=== PATIENT | male | born 1995 | race Caucasian/White ===

== ENCOUNTER 2019-06-19 17:47 | Emergency (ER) | payer SELFPAY ==
[2019-06-19 17:51] VITALS: BP 113/72; PULSE 79; RESP 15; TEMP 36.9; O2SAT 96; BMI 20.7
--- NOTE | 2019-06-19 18:04 | ED_ITS ---
HPI - Head Injury General: Chief complaint: Head Injury Stated complaint: hit head Time Seen by Provider: 06/19/19 17:58 History of Present Illness: HPI Narrative: Bumped scalp on a boat in her bridge as he was chasing dog and sustained a laceration. Patient had no loss of consciousness nausea or vomiting or any type of blunt force to the head had tetanus shot last year Complaint: other (Laceration) Onset (ago): hour(s) Mechanism of Injury: other (Hit scalp on a bolt) Place: outdoors Location of injury: occipital Severity: mild Radiation: none Other Injuries: none Associated symptoms: Reports no associated symptoms Review of Systems Narrative: Laceration to the scalp burst type laceration Const: Denies: fever or chills Eyes: Denies: change in vision Resp: Denies: shortness of breath Neuro: Denies: headache PFSH ED PFSH: Social History Smoking and tobacco status: current every day smoker Physical Exam Const: COMMON NORMALS: no apparent distress and oriented x3 Neuro: COMMON NORMALS: oriented x3 and CN's II-XII intact bilaterally Psych: COMMON NORMALS: mental status grossly normal Procedures Laceration Laceration 1: Site: scalp Size (cm): 1 Description: stellate Depth: simple, single layer Pre-repair: wound explored Size (cm): other (Stable) Number of sutures: 1 Course Vital Signs: Vital signs: Vital Signs Temperature 98.4 F 06/19/19 17:51 Pulse Rate 79 06/19/19 17:51 Respiratory Rate 15 06/19/19 17:51 Blood Pressure 113/72 06/19/19 17:51 Pulse Oximetry 96 06/19/19 17:51 Discharge Plan Discharge Patient Disposition: Home, Self-Care Clinical Impression: Laceration of scalp Qualifiers: Encounter type: initial encounter Qualified Code(s): S01.01XA - Laceration without foreign body of scalp, initial encounter Condition: Stable Prescriptions: New Keflex 500 mg capsule 500 mg PO TID 7 Days Qty: 21 RF: 0 Discharge Orders: Discharge Order (Routine); Ordered 06/19/19 Ordered By: Royal Hodgson Referrals: Jona Nguyễn MD [Primary Care Provider] - Discharge Diet: Usual diet Discharge Activity: Resume usual activity Patient Instructions: Staple Care (ED) Activity Restrictions/Additional Instructions: Follow-up with medical provider as directed. Take medications as prescribed. Return to the ER or your medical provider if condition worsens. Please read and understand discharge instructions. If any questions ask please. 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
[2019-06-19 18:20] VITALS: BP 108/68; PULSE 66; RESP 16; TEMP 36.9; O2SAT 96
[2019-06-19 18:25] VITALS: BP 108/68; PULSE 66; RESP 14; TEMP 36.8; O2SAT 96
== END 2019-06-19 18:25 | disposition home or self-care (01) ==
LOC: ER 18:09
PROVIDERS: Emergency Provider Nurse Practitioner Family; Family Provider Family Medicine; PCP Family Medicine
DX: S01.01XA Laceration without foreign body of scalp, initial encounter (principal); F17.200 Nicotine dependence, unspecified, uncomplicated; W22.8XXA Striking against or struck by other objects, initial encounter
CPT/HCPCS: 12001; 99281; 99282

== ENCOUNTER 2021-07-24 11:51 | Inpatient (IN) | payer SELFPAY ==
[2021-07-24 11:59] VITALS: BP 134/71; PULSE 73; RESP 18; TEMP 36.8; O2SAT 98; BMI 19.6
--- NOTE | 2021-07-24 12:10 | ED.C_ITS ---
HPI - Psych General: Chief Complaint: Psychiatric Symptoms Stated Complaint: MHE Time Seen by Provider: 07/24/21 12:10 History of Present Illness: Mr. Heredia is a 25-year-old gentleman with reported history of depression though has never been evaluated who presents to the emergency department due to worsening depression and suicidal ideation. He reports a longstanding history of emotional lability, tearfulness, and feeling of being stuck in his head. This caused significant relationship stress and he broke up with his girlfriend, who he has a child with, approximately 1 month ago. Since that time he has had worsening symptoms. He endorses over the past few weeks having a voice in his head which is not his that at times is mumbling and at other times is easy to hear. He reports that this voices telling him to kill himself. He did make preparations a few weeks ago to kill himself and his plan was with a knife. He wrote notes however reports that he was looking at photos of his son and decided not to kill himself. He has associated decrease in p.o. intake. Intensity of symptoms is moderate to severe. Course has been worsening. Otherwise he denies medical complaints. He does endorse marijuana use but denies other drug use. He is a smoker. No other specific changes in health, exacerbating, or alleviating factors identified. Onset (ago): week(s) Duration: getting worse Relieving factors: none Context: significant life stressor Associated psychiatric symptoms: depression, suicidal ideation and auditory yo lucinations Treatments prior to arrival: none If self harm: admits thoughts of self harm Review of Systems General: Reports: 10 or more systems reviewed and unremarkable except in HPI and below PFSH ED PFSH: Medical History Psychiatric care Surgical History No significant past surgical history Family History Brother Depression Mother Depression Social History Smoking and tobacco status: current every day smoker Physical Exam Const: COMMON NORMALS: alert GENERAL APPEARANCE: cooperative and well developed HENMT: COMMON NORMALS: normocephalic and atraumatic HEAD & SCALP: normocephalic and atraumatic Eye: COMMON NORMALS: conjunctivae normal CONJUNCTIVA: Yes conjunctivae normal SCLERA: sclerae normal Neck/C-Spine: COMMON NORMALS: supple GENERAL: Yes trachea midline Resp: COMMON NORMALS: normal respiratory effort and clear to auscultation bilaterally EFFORT & INSPECTION: Yes able to speak in complete sentences AUSCULTATION: clear to auscultation bilaterally Cardio: COMMON NORMALS: regular rate and regular rhythm RATE: regular rate RHYTHM: regular rhythm GI: COMMON NORMALS: Soft to palpation PALPATION: Yes Soft to palpation and No Tenderness to palpation present (GI) Extremity: GENERAL: Yes normal exam except as noted and No edema Neuro: COMMON NORMALS: moves all extremities SENSORIUM/ORIENTATION: Yes alert and No Orientation impaired Psych: MOOD & AFFECT: Yes depressed mood and Yes anxious Course ED course: - Patient was seen and evaluated by me at bedside -Vital signs obtained - Initial evaluation notable for as noted - Labs personally interpreted by me - Labs notable for mild leukocytosis likely secondary to hemoconcentration. Patient can adequately orally rehydrate. No acute electrolyte derangement. -Psychiatry service contacted and agreed to admit the patient -Based on ED evaluation at this point there is no obvious condition that would preclude the patient from inpatient management of psychiatric concerns. Note: Click bubbles or prepopulated quiroz in note writing are used for assistance with data collection and billing and are inherently more limited than narrative and other text portions of this note. Please use narrative for additional clinical history and defer to narrative/free test for any case of contradictory information. If information appears in only free text or click bubble it should be considered present or absent as reported. Please contact note headline writer for clarifications of clinical information or contradictory information. MDM is a brief summary, contradictory or erroneous seeming information should be clarified and full note should be reviewed. Vital Signs: Vital signs: Vital Signs Temperature 97.6 F 07/25/21 19:43 Pulse Rate 88 07/25/21 19:43 Respiratory Rate 17 07/25/21 19:43 Blood Pressure 123/76 07/25/21 19:43 Pulse Oximetry 98 07/25/21 19:43 MDM - Psych Medical Decision Making 25-year-old gentleman with recent increased social stressors presenting with suicidal ideation and auditory hallucinations. Admitted to neuropsych for definitive management. Medical Records I reviewed the patient's medical records. Lab Data I reviewed the patient's lab results. : 07/24/21 12:17 07/24/21 12:17 Laboratory Results WBC 10.2 10^3/uL (4.0-10.0) H 07/24/21 12:17 RBC 5.68 10^6/uL (4.1-5.3) H 07/24/21 12:17 Hgb 18.1 g/dL (11.7-16.6) H 07/24/21 12:17 Hct 50.3 % (42.0-52.0) 07/24/21 12:17 MCV 88.6 fl (80-94) 07/24/21 12:17 MCH 31.9 pg (28.0-34.0) 07/24/21 12:17 MCHC 36.0 g/dL (30.0-36.0) 07/24/21 12:17 RDW 11.9 % (12.1-15.1) L 07/24/21 12:17 Plt Count 280 10^3/cmm (130-400) 07/24/21 12:17 MPV 9.0 fL (7.4-10.4) 07/24/21 12:17 Neut % (Auto) 83.8 % 07/24/21 12:17 Lymph % (Auto) 7.8 % 07/24/21 12:17 Loíza % (Auto) 7.2 % 07/24/21 12:17 Eos % (Auto) 0.6 % 07/24/21 12:17 Baso % (Auto) 0.4 % 07/24/21 12:17 Neut # (Auto) 8.55 10^3/uL (1.8-7.7) H 07/24/21 12:17 Lymph # (Auto) 0.8 10^3/uL (0.8-4.8) 07/24/21 12:17 Loíza # (Auto) 0.7 10^3/uL (0.2-0.9) 07/24/21 12:17 Eos # (Auto) 0.1 10^3/uL (0.0-0.8) 07/24/21 12:17 Baso # (Auto) 0.0 10^3/uL (0.0-0.1) 07/24/21 12:17 Nucleated RBC % (auto) 0 % 07/24/21 12:17 Nucleated RBCs # 0.0 /100WBC 07/24/21 12:17 Sodium 139 mmol/L (136-145) 07/24/21 12:17 Potassium 3.6 mmol/L (3.5-5.1) 07/24/21 12:17 Chloride 101 mmol/L (98-107) 07/24/21 12:17 Carbon Dioxide 28 mmol/L (22-29) 07/24/21 12:17 Anion Gap 13.6 (5-19) 07/24/21 12:17 BUN 9 mg/dL (6-20) 07/24/21 12:17 Creatinine 0.7 mg/dL (0.7-1.2) 07/24/21 12:17 GFR Calculation 139.8 mL/min (90-130) H 07/24/21 12:17 Glucose 99 mg/dL (65-115) 07/24/21 12:17 Calculated Osmolality 287 mOsm/kg (285-295) 07/24/21 12:17 Calcium 9.7 mg/dL (8.5-10.5) 07/24/21 12:17 Total Bilirubin 1.3 mg/dL (0.15-1.2) H 07/24/21 12:17 AST 17 U/L (0-40) 07/24/21 12:17 ALT 13 U/L (0-41) 07/24/21 12:17 Alkaline Phosphatase 76 IU/L (40-130) 07/24/21 12:17 Total Protein 7.8 g/dL (6.6-8.7) 07/24/21 12:17 Albumin 5.3 g/dL (3.5-5.2) H 07/24/21 12:17 Globulin 2.5 g/dL (1.3-4.6) 07/24/21 12:17 TSH 1.01 uIU/mL (0.27-4.20) 07/24/21 12:17 Salicylates < 0.3 mg/dL (3-10) L 07/24/21 12:17 Urine Opiates Screen Negative ng/mL (Negative) 07/24/21 12:45 Acetaminophen < 5.0 ug/mL (10-30) L 07/24/21 12:17 Ur Barbiturates Screen Negative ng/mL (Negative) 07/24/21 12:45 Ur Phencyclidine Scrn Negative ng/mL (Negative) 07/24/21 12:45 Ur Amphetamines Screen Negative ng/mL (Negative) 07/24/21 12:45 U Benzodiazepines Scrn Positive ng/mL (Negative) H 07/24/21 12:45 Urine Cocaine Screen Negative ng/mL (Negative) 07/24/21 12:45 U Marijuana (THC) Screen Positive ng/mL (Negative) H 07/24/21 12:45 Ethyl Alcohol < 10 mg/dL (0-10) 07/24/21 12:17 Discharge Plan Discharge Patient Disposition: Admitted As Inpatient Admit Provider: Kevin Ordonez Clinical Impression: Suicidal ideation, Auditory hallucinations Condition: Stable Discharge Diet: Regular Discharge Activity: Resume usual activity Coding Level of Care Code ED Local Intermodal Truck Driver for Espinoza Fwd Exam Comprehensive
[2021-07-24 12:46] LABS: Basophils % 0.4 %; Eosinophils # 0.1 10^3/uL (0.0-0.8); Eosinophils % 0.6 %; Hematocrit 50.3 % (42.0-52.0); Hemoglobin 18.1 g/dL (11.7-16.6); Lymphocytes # 0.8 10^3/uL (0.8-4.8); Lymphocytes % 7.8 %; Mean Corpuscular Hemoglobin 31.9 pg (28.0-34.0); Mean Corpuscular Volume 88.6 fl (80-94); Monocytes # 0.7 10^3/uL (0.2-0.9); Monocytes % 7.2 %; Neutrophils # 8.55 10^3/uL (1.8-7.7); Neutrophils % 83.8 %; Nucleated Red Blood Cells % 0 %; Platelet Count 280 10^3/cmm (130-400); Red Blood Count 5.68 10^6/uL (4.1-5.3); Red Cell Distribution Width 11.9 % (12.1-15.1); White Blood Count 10.2 10^3/uL (4.0-10.0)
[2021-07-24 13:05] LABS: Alanine Aminotransferase 13 U/L (0-41); Albumin Level 5.3 g/dL (3.5-5.2); Alkaline Phosphatase 76 IU/L (40-130); Anion Gap 13.6 (5-19); Aspartate Amino Transferase 17 U/L (0-40); Blood Urea Nitrogen 9 mg/dL (6-20); Calcium 9.7 mg/dL (8.5-10.5); Carbon Dioxide 28 mmol/L (22-29); Chloride 101 mmol/L (98-107); Globulin 2.5 g/dL (1.3-4.6); Glomerular Filtration Rate 139.8 mL/min (90-130); Glucose 99 mg/dL (65-115); Osmolality Calculated 287 mOsm/kg (285-295); Potassium 3.6 mmol/L (3.5-5.1); Sodium 139 mmol/L (136-145); Thyroid Stimulating Hormone 1.01 uIU/mL (0.27-4.20); Total Bilirubin 1.3 mg/dL (0.15-1.2); Total Protein 7.8 g/dL (6.6-8.7)
[2021-07-24 13:06] LABS: Acetaminophen < 5.0 ug/mL (10-30); Alcohol Level < 10 mg/dL (0-10); Salicylate < 0.3 mg/dL (3-10)
[2021-07-24 14:44] VITALS: BP 110/57; PULSE 71; RESP 20; TEMP 36.6; O2SAT 97
[2021-07-24 15:06] VITALS: BP 120/76; PULSE 74; RESP 16; TEMP 36.6; O2SAT 98
[2021-07-24 15:20] LABS: Amphetamines Screen Urine Negative (Negative); Barbiturates Screen Urine Negative (Negative); Benzodiazepines Screen Urine Positive (Negative); Cocaine Screen Urine Negative (Negative); Opiate Screen Urine Negative (Negative); PCP Screen Urine Negative (Negative); THC Screen Urine Positive (Negative)
[2021-07-24] MEDS: nicotine 2 mg Gum BUCCAL (17:36)
[2021-07-24 21:36] VITALS: BP 94/63; PULSE 93; RESP 17; TEMP 36.8; O2SAT 96
[2021-07-25] MEDS: nicotine 2 mg Gum BUCCAL ×7 (01:54→18:58)
[2021-07-25 06:00] VITALS: BP 106/58; PULSE 82; RESP 20; TEMP 36.4; O2SAT 97
[2021-07-25] MEDS: OLANZapine 5 mg ODT PO ×2 (08:57→17:13)
--- NOTE | 2021-07-25 12:12 | NPU.GN ---
[facility] Unit Group Topic:Whine Barrel Activity General Mood of Group: Elmer did not attend group today. Elmer did meet with [facility] and discussed and completed the [facility] paperwork.
--- NOTE | 2021-07-25 12:42 | P.NPUHP_ITS ---
Providers/Chief Complaint Admitting Physician: Kevin Ordonez MD Chief Complaint: MHE HPI NPU History of Present Illness Elmer Heredia is a 25 year old male who presented to the emergency department with the following report: Mr. Heredia is a 25-year-old gentleman with reported history of depression th ough has never been evaluated who presents to the emergency department due to worsening depression and suicidal ideation. He reports a longstanding history of emotional lability, tearfulness, and feeling of being stuck in his head. This caused significant relationship stress and he broke up with his girlfriend, who he has a child with, approximately 1 month ago. Since that time he has had worsening symptoms. He endorses over the past few weeks having a voice in his head which is not his that at times is mumbling and at other times is easy to hear. He reports that this voices telling him to kill himself. He did make preparations a few weeks ago to kill himself and his plan was with a knife. He wrote notes however reports that he was looking at photos of his son and decided not to kill himself. He has associated decrease in p.o. intake. Intensity of symptoms is moderate to severe. Course has been worsening. Otherwise he denies medical complaints. He does endorse marijuana use but denies other drug use. He is a smoker. No other specific changes in health, exacerbating, or alleviating factors identified. Onset (ago): week(s) Duration: getting worse Relieving factors: none Context: significant life stressor Associated psychiatric symptoms: depression, suicidal ideation and auditory hallucinations Treatments prior to arrival: none If self harm: admits thoughts of self harm. Who was admitted to the neuropsychiatric unit for definitive treatment of those issues. He reports that he had not been in inpatient services before in his life and had not had outpatient services either. However, he went down to [facility] for a walk in and they did not have availability for him. They advised him to come up to the hospital because he really felt he needed to get on medication to get a chance to succeed under his current circumstance, and so he came to the hospital to get help and be started on medication but it was his understanding that he would see someone and be discharged essentially immediately as he has a job that he has missed days because of the challenges of his mental health and he can?t afford to miss more days. He has never been on medication in the past. He e ndorses he smokes about a half a pack of cigarettes a day, does not drink alcohol, endorses having marijuana occasionally, and denied cocaine, methamphetamine, or any other illicit drugs. He has never been to a rehab, has never gotten a DUI or possession charges. His UDS was positive for benzodiazep jane and cannabis. He reports he has had issues with depression in his late teens and about 4 years ago he did have depression which has gotten worse especially with recent psychosocial events which are characterized above. He reports that he has had feelings of helplessness, hopelessness, and worth lessness, some suicidal thoughts, but denies any suicide attempts. He reports he recently broke up with his girlfriend and did have fleeting thoughts but knows there is so much more to live for. We discussed the risks, benefits and alternatives of starting Prozac and he understood and agreed to proceed as is documented in this note. Psychiatric History: As above. Substance Abuse History: As above Family History: He reports mental health issues on both sides of the family, endorses likely addiction issues on both sides of the family, but denies any suicide attempts or completions on either side of the family. Developmental History: There were no issues with his , or delivery, he learned to walk and talk and met his developmental milestones on time, and denied any need for speech therapy, learning support, emotional support or special education classes. Psychosocial History: He reports his parents were together when he was born and stayed together until he was a few years old. He reports he has a younger brother who is a product of the same union. His mother did not have any other children but he wasn?t sure about his father. He reports his childhood was pretty good and denied emotional, physical or sexual abuse. He reports there may have been some bullying in school but otherwise denies any other traumatic events. He graduated from high school but denies any additional training. He endorses being heterosexual with his longest relationship being over 3 years. He has never been , he has a son, has never been in the , and reports he ?does believe in the Lord?. His longest work history is 6 years at [employer] however because of recent challenges and missed days, he reports he is on very thin ice. He reports he had been living in a house with his ex-girlfriend but is going to move in with his mom and get things together. Legal History: Denied. Medical History: He denied any pressing issues. Please see ED note for additional details. Meds NPU Home Medications Medication Instructions Recorded Confirmed Last Taken Type acetaminophen 500 mg tablet 1,000 mg PO Q6H PRN 07/24/21 07/24/21 Unknown History ibuprofen 200 mg tablet 400 mg PO Q6H PRN 07/24/21 07/24/21 Unknown History fluoxetine 20 mg capsule 20 mg PO DAILY 30 Days #30 cap 07/25/21 Unknown Rx Allergies Allergy/AdvReac Type Severity Reaction Status Date / Time Penicillins Allergy ALGY-Rash Verified 07/24/21 12:35 PFSH NPU PFSH: Medical History Psychiatric care Surgical History No significant past surgical history Family History Brother Depression Mother Depression Social History Smoking and tobacco status: current every day smoker Mental Status Exam MSE Comments: This is underweight white male with adequate dress, grooming and eye contact. No abnormal movements except for mild psychomotor retardation. Cooperative with exam in no acute distress. Speech was normal rate and volume. Mood described as anxious and depressed, affect congruent. Thought process, organized. Thought content: patient denies any suicidal or homicidal ideation, no delusions reported or noted, and denies any auditory or visual hallucinations. Attention and concentration are intact and memory is reliable but none were formally tested. He is alert and oriented three times. Insight and judgment are fair. Impulse control is fair. Vitals/I&O/Wt Last Vital Signs Temp 97.6 F 07/25/21 06:00 Pulse 82 07/25/21 06:00 Resp 20 H 07/25/21 06:00 BP 106/58 07/25/21 06:00 Pulse Ox 97 07/25/21 06:00 Weight last 48 hrs Weight 60.328 kg Data NPU : 07/24/21 12:17 03/23/22 12:17 A&P Assessment and plan (1) Major depressive disorder, recurrent: Status: Acute (2) Suicidal ideation: Status: Resolved (3) Auditory hallucinations: Status: Resolved Plan This is a 25 year old white male with a long history of anxiety and depression and recent psychosocial stressors who presents hoping to initiate medication sooner rather than later, but also identifying a need to be discharged to avoid loss of the only good job he has ever had. Continue current medications. Start Prozac 20 mg p.o. every morning and have patient follow-up back at [facility]. Encourage individual, group and milieu therapy Continue q-15 minute check for safety Recommend sober living treatment at the [facility]. Patient is not on a 96-hour hold and does not appear to pose a risk to himself or others and would benefit from the medication. Will allow to discharge. Involuntary Hold Information 96 Hour Hold: 96 Hour Involuntary Admission: No Attestations NPU Medical Necessity Statement*: Inpatient hospitalization is medically necessary and the clinically appropriate intervention at this time. We will monitor medications and make changes as indicated. Patient is voluntary and would suff er significant damage if you are not allowed to go to work so we will discharge today after a period of observation on the Prozac. Coding Level of Care Code Acute Electrician Office for Espinoza Cabral Diagnoses Major depressive disorder, recurrent F33.9 Suicidal ideation R45.851 Auditory hallucinations R44.0
[2021-07-25 14:00] VITALS: BP 123/76; PULSE 88; RESP 17; TEMP 36.4; O2SAT 98
[2021-07-25] MEDS: hyDROXYzine 25 mg Capsule 50 MG PO (15:27)
--- NOTE | 2021-07-25 16:00 | PC.NURSE ---
PRN Medication Up to nurses station at 1525 request something for anxiety. This RN asked if he was hearing voices and reports no, just anxiety. Vistaril 50 mg PO given as ordered at 1527. Reassessed 30 minutes later and reports medication is effective.
--- NOTE | 2021-07-25 17:39 | PC.NURSE ---
Focused conversation with patient regarding past medication usage. Patient reports not taking any prescribed medication in the past and that he has never had a therapist in the past. Patient recent stresses include breakup with girlfriend, mother with stage 4 cervical cancer and potential loss of job that he has had for 6 years. Patient endorsed having depression for 2 1/2 years with recent anxiety due to stresses. Patient stated there were two times in life that he has heard his own voice self talk stating your life isn't going to the way you want, just do it. Patient denies SI/HI/ AVH at present. States he would never hurt himself or anyone else. Patient is open to medication therapy. Physician notified.
--- NOTE | 2021-07-25 17:57 | PC.NURSE ---
PRN Medication Up to nurses station, voices anxiety and request something to help with anxiety. Administered Zydis 5 MG as ordered at 1713. Reassesed at 1759 and states medication was somewhat effective. Request to speak to doctor. Doctor in room speaking to patient now.
[2021-07-25] MEDS: acetaminophen 325 mg Tablet 650 MG PO (18:31)
[2021-07-25] MEDS: fluoxetine 20 mg Capsule PO (18:31)
--- NOTE | 2021-07-25 19:01 | P.NPUDS_ITS ---
Reason for Visit Reason for Visit: MHE Brief History: History of Present Illness Elmer Heredia is a 25 year old male who presented to the emergency department with the following report: Mr. Hereida is a 25-year-old gentleman with reported history of depression though has never been evaluated who presents to the emergency department due to worsening depression and suicidal ideation.? He reports a longstanding history of emotional lability, tearfulness, and feeling of being stuck in his head.? This caused significant relationship stress and he broke up with his girlfriend, who he has a child with, approximately 1 month ago.? Since that time he has had worsening symptoms.? He endorses over the past few weeks having a voice in his head which is not his that at times is mumbling and at other times is easy to hear.? He reports that this voices telling him to kill himself.? He did make preparations a few weeks ago to kill himself and his plan was with a knife.? He wrote notes however reports that he was looking at photos of his son and decided not to kill himself.? He has associated decrease in p.o. intake. Intensity of symptoms is moderate to severe.? Course has been worsening. Otherwise he denies medical complaints.? He does endorse marijuana use but denies other drug use.? He is a smoker.? No other specific changes in health, exacerbating, or alleviating factors identified. Onset (ago): week(s) Duration: getting worse Relieving factors: none Context: significant life stressor Associated psychiatric symptoms: depression, suicidal ideation and auditory hallucinations Treatments prior to arrival: none If self harm: admits thoughts of self harm. Who was admitted to the neuropsychiatric unit for definitive treatment of those issues. He reports that he had not been in inpatient services before in his life and had not had outpatient services either. However, he went down to [facility] for a walk in and they did not have availability for him. They advised him to come up to the hospital because he really felt he needed to get on medication to get a chance to succeed under his current circumstance, and so he came to the hospital to get help and be started on medication but it was his understanding that he would see someone and be discharged essentially immediately as he has a job that he has missed days because of the challenges of his mental health and he can?t afford to miss more days. He has never been on medication in the past. He endorses he smokes about a half a pack of cigarettes a day, does not drink alcohol, endorses having marijuana occasionally, and denied cocaine, methamphetamine, or any other illicit drugs. He has never been to a rehab, has never gotten a DUI or possession charges. His UDS was positive for benzodiazepines and cannabis. He reports he has had issues with depression in his late teens and about 4 years ago he did have depression which has gotten worse especially with recent psychosocial events which are characterized above. He reports that he has had feelings of helplessness, hopelessness, and worthlessness, some suicidal thoughts, but denies any suicide attempts. He reports he recently broke up with his girlfriend and did have fleeting thoughts but knows there is so much more to live for. We discussed the risks, benefits and alternatives of starting Prozac and he understood and agreed to proceed as is documented in this note. Psychiatric History: As above. Substance Abuse History: As above Family History: He reports mental health issues on both sides of the family, endorses likely addiction issues on both sides of the family, but denies any suicide attempts or completions on either side of the family. Developmental History: There were no issues with his , or delivery, he learned to walk and talk and met his developmental milestones on time, and denied any need for speech therapy, learning support, emotional support or special education classes. Psychosocial History: He reports his parents were together when he was born and stayed together until he was a few years old. He reports he has a younger brother who is a product of the same union. His mother did not have any other children but he wasn?t sure about his father. He reports his childhood was pretty good and denied emotional, physical or sexual abuse. He reports there may have been some bullying in school but otherwise denies any other traumatic events. He graduated from high school but denies any additional training. He endorses being heterosexual with his longest relationship being over 3 years. He has never been , he has a son, has never been in the , and reports he ?does believe in the Lord?. His longest work history is 6 years at [employer] however because of recent challenges and missed days, he reports he is on very thin ice. He reports he had been living in a house with his ex-girlfriend but is going to move in with his mom and get things together. Legal History: Denied. Medical History: He denied any pressing issues. Please see ED note for additional details. Hospital Course Hospital Course He quickly acclimated to the individual, group and milieu therapies provided. He had little understanding of the system and was believing that he would get a similar evaluation that he would get at [facility] which would involve evaluative process consideration of medications prescribed and discharge. He was quite anxious secondary to thoughts that he would stay and in him losing his job he is held for 6 years. He also was concerned that the option was leaving AGAINST MEDICAL ADVICE and not getting the medication that he still desperately felt he needed. He had significant improvements once he understood that we would work with him and avoid the bad outcome he was fearing and he tolerated the Prozac once was given to him. He was able to contract for safety outside the hospital prior to discharge. During the hospitalization, patient had routine laboratory studies which were within normal limits except for few outliers. Additionally there was a general medical evaluation which was also within normal limits and revealed no new acute processes. Discharge Summary: At the time of discharge, he denied psychosis or lethality. Mood and anxiety were well managed. Patient endorsed a plan to avoid all drugs of abuse and follow-up with the aftercare recommendations of the treatment team. Patient was evaluated and deemed to be absent credible lethality, and had achieved the maximum benefit from an inpatient hospitalization, so was discharged. Involuntary Hold Information 96 Hour Hold: 96 Hour Involuntary Admission: No Mental Status Exam MSE Comments: This is underweight white male with adequate dress, grooming and eye contact. No abnormal movements except for mild psychomotor retardation. Cooperative with exam in no acute distress. Speech was normal rate and volume. Mood described as anxious and depressed, affect congruent. Thought process, organized. Thought content: patient denies any suicidal or homicidal ideation, no delusions reported or noted, and denies any auditory or visual hallucinations. Attention and concentration are intact and memory is reliable but none were formally tested. He is alert and oriented three times. Insight and judgment are fair. Impulse control is fair. Discharge Data Studies Completed and Pending: Laboratory Results WBC 10.2 10^3/uL (4.0 -10.0) H 07/24/21 12:17 RBC 5.68 10^6/uL (4.1 -5.3) H 07/24/21 12:17 Hgb 18.1 g/dL (11.7-1 6.6) H 07/24/21 12:17 Hct 50.3 % (42.0-52.0 ) 07/24/21 12:17 MCV 88.6 fl (80-94) 07/24/21 12:17 MCH 31.9 pg (28.0-34. 0) 07/24/21 12:17 MCHC 36.0 g/dL (30.0-3 6.0) 07/24/21 12:17 RDW 11.9 % (12.1-15.1 ) L 07/24/21 12:17 Plt Count 280 10^3/cmm (130 -400) 07/24/21 12:17 MPV 9.0 fL (7.4-10.4) 07/24/21 12:17 Neut % (Auto) 83.8 % 07/24/21 12:17 Lymph % (Auto) 7.8 % 07/24/21 12:17 Alexander % (Auto) 7.2 % 07/24/21 12:17 Eos % (Auto) 0.6 % 07/24/21 12:17 Baso % (Auto) 0.4 % 07/24/21 12:17 Neut # (Auto) 8.55 10^3/uL (1.8 -7.7) H 07/24/21 12:17 Lymph # (Auto) 0.8 10^3/uL (0.8- 4.8) 07/24/21 12:17 Alexander # (Auto) 0.7 10^3/uL (0.2- 0.9) 07/24/21 12:17 Eos # (Auto) 0.1 10^3/uL (0.0- 0.8) 07/24/21 12:17 Baso # (Auto) 0.0 10^3/uL (0.0- 0.1) 07/24/21 12:17 Nucleated RBC % (a uto) 0 % 07/24/21 12:17 Nucleated RBCs # 0.0 /100WBC 07/24/21 12:17 Sodium 139 mmol/L (136-1 45) 07/24/21 12:17 Potassium 3.6 mmol/L (3.5-5 .1) 07/24/21 12:17 Chloride 101 mmol/L (98-10 7) 07/24/21 12:17 Carbon Dioxide 28 mmol/L (22-29) 07/24/21 12:17 Anion Gap 13.6 (5-19) 07/24/21 12:17 BUN 9 mg/dL (6-20) 07/24/21 12:17 Creatinine 0.7 mg/dL (0.7-1. 2) 07/24/21 12:17 GFR Calculation 139.8 mL/min (90- 130) H 07/24/21 12:17 Glucose 99 mg/dL (65-115) 07/24/21 12:17 Calculated Osmolal ity 287 mOsm/kg (285- 295) 07/24/21 12:17 Calcium 9.7 mg/dL (8.5-10 .5) 07/24/21 12:17 Total Bilirubin 1.3 mg/dL (0.15-1 .2) H 07/24/21 12:17 AST 17 U/L (0-40) 07/24/21 12:17 ALT 13 U/L (0-41) 07/24/21 12:17 Alkaline Phosphata se 76 IU/L (40-130) 07/24/21 12:17 Total Protein 7.8 g/dL (6.6-8.7 ) 07/24/21 12:17 Albumin 5.3 g/dL (3.5-5.2 ) H 07/24/21 12:17 Globulin 2.5 g/dL (1.3-4.6 ) 07/24/21 12:17 TSH 1.01 uIU/mL (0.27 -4.20) 07/24/21 12:17 Salicylates < 0.3 mg/dL (3-10 ) L 07/24/21 12:17 Urine Opiates Scre en Negative ng/mL (N egative) 07/24/21 12:45 Acetaminophen < 5.0 ug/mL (10-3 0) L 07/24/21 12:17 Ur Barbiturates Sc reen Negative ng/mL (N egative) 07/24/21 12:45 Ur Phencyclidine S crn Negative ng/mL (N egative) 07/24/21 12:45 Ur Amphetamines Sc reen Negative ng/mL (N egative) 07/24/21 12:45 U Benzodiazepines Scrn Positive ng/mL (N egative) H 07/24/21 12:45 Urine Cocaine Scre en Negative ng/mL (N egative) 07/24/21 12:45 U Marijuana (THC) Screen Positive ng/mL (N egative) H 07/24/21 12:45 Ethyl Alcohol < 10 mg/dL (0-10) 07/24/21 12:17 Vitals: Last Vital Signs Temp 97.6 F 07/25/21 14:00 Pulse 88 07/25/21 14:00 Resp 17 07/25/21 14:00 BP 123/76 07/25/21 14:00 Pulse Ox 98 07/25/21 14:00 Discharge Plan Discharge Patient Disposition: Home Condition: Stable Prescriptions: New fluoxetine 20 mg Capsule 20 mg PO DAILY 30 Days Qty: 30 1RF Continued acetaminophen 500 mg Tablet 1,000 mg PO Q6H PRN (Reason: Pain) 0RF ibuprofen 200 mg Tablet 400 mg PO Q6H PRN (Reason: Pain) 0RF Discharge Orders: Discharge Order (Routine); Ordered 07/25/21 Ordered By: Kian Cotton Discharge Diet: Regular Discharge Activity: Resume usual activity Patient Instructions: Depression, Depression (DC), Hallucinations (DC), Opioid Safety Activity Restrictions/Additional Instructions: Follow up with behavioral Health [facility] in one week. Follow up with PCP in 1-3 days Discharge Attestations NPU Time Spent in Discharge Care*: greater than 30 min Specific Discharge Activities: Specific discharge activities: educating patient, discussing with manager case management/social workers/dc planners, documenting/other paperwork and evaluating patient/reviewing data Coding Level of Care Code Acute Chg FW DC note
[2021-07-25 19:43] VITALS: BP 123/76; PULSE 88; RESP 17; TEMP 36.4; O2SAT 98
== END 2021-07-25 20:04 | disposition home or self-care (01) | DRG 885 ==
LOC: ER 14:26 → NP 07-25 11:38
PROVIDERS: Admitting Provider Psychiatry & Neurology Psychiatry; Emergency Provider Emergency Medicine; Visit Provider Psychiatry & Neurology Psychiatry
DX: F33.9 Major depressive disorder, recurrent, unspecified (principal); R45.851 Suicidal ideations; R44.0 Auditory hallucinations; F12.90 Cannabis use, unspecified, uncomplicated; F17.210 Nicotine dependence, cigarettes, uncomplicated; Z81.8 Family history of other mental and behavioral disorders; F41.9 Anxiety disorder, unspecified
CPT/HCPCS: 80053; 80306; 80307; 84443; 85025; 97165; 99285

== ENCOUNTER → 2022-10-06 10:55 | Outpatient (BNVA) | payer OTHER, SELFPAY | PROVIDERS: Visit Provider Nurse Practitioner Psychiatric/Mental Health | DX: Z03.89 Encounter for observation for other suspected diseases and conditions ruled out (principal); F33.41 Major depressive disorder, recurrent, in partial remission; Z56.6 Other physical and mental strain related to work; F41.9 Anxiety disorder, unspecified | CPT/HCPCS: 80307 ==

== ENCOUNTER 2023-06-16 17:06 | Emergency (ER) | payer BC, SELFPAY ==
[2023-06-16 17:32] VITALS: BP 129/81; PULSE 83; RESP 16; TEMP 37.2; O2SAT 100; BMI 19.9
--- NOTE | 2023-06-16 18:08 | W.ED.DENTAL ---
HPI - Dental/Oral General: Chief complaint: Dental/Oral Stated complaint: tooth pain, N/V, chills Time Seen by Provider: 06/16/23 17:37 Source: patient Mode of arrival: ambulatory Limitations: no limitations History of Present Illness: Patient presents to the emergency department today accompanied by his for evaluation treatment of left upper dental pain. Patient states he has had off-and-on pain now for approximately 1 month. He had an old prescription of amoxicillin which she states he took for about 1 week and had resolution of his symptoms initially. However, after several days of not taking antibiotics, pain and developing swelling started back. He admits he has chronic issues with his teeth. Most of the time, he has to call around to see who will take his insurance at that time. He has recently gotten different insurance and states he will be calling to see if he can find a dentist in the area. He does admit to some sharp pains towards his left ear. He has had a little left cheek tenderness but no significant pain. Review of Systems General: Reports: 10 or more systems reviewed and unremarkable except in HPI and below PFSH ED PFSH: Medical History Major depressive disorder, recurrent, in partial remission Psychiatric care Surgical History No significant past surgical history Family History Brother Depression Mother Depression Social History Smoking and tobacco/nicotine status: current every day tobacco/nicotine user cigarettes Packs smoked per day: 0.5 Years cigarettes smoked: 8 Quit status (tobacco/nicotine): has tried quititng Number of times tried to quit tobacco: 1 Second hand smoke exposure: No Physical Exam Const: COMMON NORMALS: no acute distress, patient oriented x3 and alert HENMT: OTHER: Nasal passages are patent without erythema or bogginess. No signs of left-sided facial swelling. No sinus tenderness on palpation. Patient has multiple broken and decayed teeth with redness of the gums primarily noted to the left upper posterior gumline. No signs of any active draining or significant abscess present. Eye: COMMON NORMALS: Equal, round and reactive pupils present, EOMs intact bilaterally and conjunctivae normal CONJUNCTIVA: Yes conjunctivae normal PUPIL: Yes Equal, round and reactive pupils present Neck/C-Spine: COMMON NORMALS: no JVD Lymph: LYMPHATIC: no lymphadenopathy noted Resp: COMMON NORMALS: normal respiratory effort, No retractions and No use of accessory muscles Cardio: COMMON NORMALS: no JVD and regular rate RATE: regular rate : COMMON NORMALS: Yes no CVA tenderness BLADDER/KIDNEY EXAM: Yes no CVA tenderness Back/Pelvis: COMMON NORMALS: no CVA tenderness, thoracic and lumbar spine normal to inspection and thoraco-lumbar ROM normal Extremity: COMMON NORMALS: normal to inspection, full ROM and no pedal edema Neuro: COMMON NORMALS: patient oriented x3 SENSORIUM/ORIENTATION: Yes alert Skin: COMMON NORMALS: no rashes or lesions noted and turgor normal GENERAL SKIN EXAM: no rashes or lesions noted and turgor normal Course Vital Signs: Vital signs: Vital Signs Temperature 98.9 F 06/16/23 17:32 Pulse Rate 83 06/16/23 17:32 Respiratory Rate 16 06/16/23 17:32 Blood Pressure 129/81 06/16/23 17:32 Pulse Oximetry 100 06/16/23 17:32 Oxygen Delivery Me thod Room Air 06/16/23 17:32 MDM - Dental/Oral Medical Decision Making Patient has a known history of chronic dental issues. He states he has been having off-and-on pain in this area now for approximately 1 month which was originally treated with some old antibiotics he had at home. However, after taking medication for about a week his symptoms had resolved. He states he had resolution of symptoms for a while up until the last few days. Patient does not have any more antibiotics and states that with his new insurance, he is not sure of a dentist who will take him as a patient. Patient has a penicillin allergy listed in his chart. He indicates that he does have some itching associated with taking penicillins. I will treat him with clindamycin starting this evening. First dose provided in the ER. Patient was also given Toradol and some viscous lidocaine for pain. Patient was prescribed continued dosing of clindamycin as well as ibuprofen and mouthwash. Patient indicated he will be calling around to find a local dentist who will take his insurance for more definitive management and care of his chronic dental issues. Return precautions given. Differential Diagnosis Likely dental caries and toothache; Unlikely gingival abscess, dental abscess, fracture of tooth or aphthous ulcer No radiology studies performed this visit Discharge Plan Discharge Patient Disposition: Home Clinical Impression: Dental infection, Pain, dental Condition: Stable Prescriptions: New clindamycin HCl 300 mg capsule 300 mg PO Q8H 10 Days Qty: 30 0RF ibuprofen 800 mg tablet 800 mg PO Q8H PRN (Reason: pain) Qty: 21 0RF chlorhexidine gluconate 0.12 % mouthwash 15 ml buccal DAILY Qty: 120 0RF No Action sertraline 50 mg tablet 50 mg PO DAILY Qty: 30 1RF Rx Instructions: For 4 days:Take 1/2 tablet daily, then increase to one tablet daily lorazepam 0.5 mg tablet 0.5 mg PO TID PRN (Reason: anxiety) Qty: 90 2RF Rx Instructions: take at least 4 hours apart acetaminophen 500 mg Tablet 1,000 mg PO Q6H PRN (Reason: Pain) ibuprofen 200 mg Tablet 400 mg PO Q6H PRN (Reason: Pain) Discharge Orders: Discharge ED (Routine); Ordered 06/16/23 Ordered By: Sita Crawley Discharge Diet: Advance as tolerated Discharge Activity: Resume usual activity Patient Instructions: Dental Abscess (ED), Toothache (ED) Activity Restrictions/Additional Instructions: We are starting you on a prescription for clindamycin. Of also provided you some anti-inflammatory medication to help with your pain as well as a mouthwash to use. Continue to look for a dentist who will take your insurance as the only definitive management for chronic dental issues is evaluation and treatment by a dentist. If you develop significant facial swelling, difficulty swallowing, or discoloration of the skin overlying your cheek you need to be seen and reevaluated here in the ER again. 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
[2023-06-16] MEDS: clindamycin 150 mg Capsule 300 MG PO (18:14)
[2023-06-16] MEDS: lidocaine 2% viscous 15 mL UDC MUCOUS MEM (18:14)
== END 2023-06-16 18:18 | disposition home or self-care (01) ==
PROVIDERS: Emergency Provider Physician Assistant
DX: K04.7 Periapical abscess without sinus (principal); F17.210 Nicotine dependence, cigarettes, uncomplicated
CPT/HCPCS: 99283

== ENCOUNTER 2024-03-05 05:54 | Emergency (ER) | payer BC, SELFPAY ==
[2024-03-05 05:59] VITALS: BP 165/104; PULSE 116; RESP 20; TEMP 36.8; O2SAT 100; BMI 20.7
[2024-03-05 06:04] VITALS: BP 140/100; PULSE 107; RESP 20; O2SAT 95
--- NOTE | 2024-03-05 06:07 | XRR_ITS ---
PROCEDURE INFORMATION: Exam: XR Chest Exam date and time: 03/05/2024 6:12 AM Age: 28 years old Clinical indication: Patient HX: Cough with tachycardia; Additional info: Dyspnea/cough TECHNIQUE: Imaging protocol: Radiologic exam of the chest. Views: 1 view. COMPARISON: No relevant prior studies available. FINDINGS: Lungs: Unremarkable. No consolidation. Pleural spaces: Unremarkable. No pleural effusion. No pneumothorax. Heart/Mediastinum: Unremarkable. No cardiomegaly. Bones/joints: Unremarkable. XR/XR chest 1V portable [id number] IMPRESSION: No acute findings.
--- NOTE | 2024-03-05 06:07 | ECG_ITS ---
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 Measurements Intervals [place] Rate: 106 P: 65 CO: 175 QRS: 95 QRSD: 126 T: 67 QT: 268 QTc: 356 Interpretive Statements SINUS TACHYCARDIA RIGHT BUNDLE BRANCH BLOCK No previous ECG available for comparison Electronically Signed On 03-05-2024 13:39:15 CDT by Xni Campbell M.D. [email or web address]
[2024-03-05 06:22] LABS: ABG PCO2 25.9 mmHg (35-45); ABG PH Result 7.54 (7.35-7.45); Arterial Blood Gas Hematocrit 51.8 % (42-52); Base Excess ABG 1.6 mmol/L (-2.0-2.0); Blood Gas Allen Test Pos; Blood Gas Sample Type Arterial; Carboxyhemoglobin 2.6 %THgb (0.4-20.1); HCO3 ABG 22.3 mmol/L (22-26); HGB O2 Sat 96.9 % (95-100); Ionized Calcium Level - ABG 1.2 mmol/L (1.1-1.4); Methemoglobin 0.3 % (0.4-1.5); Oxygen Saturation ABG > 99.1; Potassium Level - ABG 3.4 mmol/L (3.5-5.0); Total Hemoglobin 16.9 g/dL (14-18)
[2024-03-05 06:23] LABS: Blood Gas Operator Identificat ED; Blood Gas Sample Site Radial, left; Oxygen Device ROOM AIR; PO2 FiO2 Ratio Arterial Blood 600
[2024-03-05 06:29] LABS: Basophils % 0.3 %; Eosinophils # 0.1 10^3/uL (0.0-0.8); Eosinophils % 1.3 %; Hematocrit 48.8 % (37-53); Lymphocytes # 1.2 10^3/uL (0.8-4.8); Lymphocytes % 19.9 %; Mean Corpuscular HGB Conc 35.5 g/dL (30-55); Mean Corpuscular Hemoglobin 32.3 pg (27-33); Mean Corpuscular Volume 91.2 fl (82-101); Mean Platelet Volume 8.8 fL (7.4-10.4); Monocytes # 0.6 10^3/uL (0.2-0.9); Monocytes % 9.4 %; Neutrophils % 68.6 %; Nucleated Red Blood Cells % 0 %; Platelet Count 325 10^3/cmm (157-399); Red Blood Count 5.35 10^6/uL (3.85-5.65); Red Cell Distribution Width 12.1 % (12.1-15.1); White Blood Count 5.98 10^3/uL (3.29-11.43)
[2024-03-05 06:34] VITALS: BP 143/94; PULSE 102; RESP 20; O2SAT 100
[2024-03-05] MEDS: sertraline 100 mg Tablet PO (06:36)
[2024-03-05] MEDS: LORazepam 2 mg/mL INJ 1 mL IVP (06:36)
--- NOTE | 2024-03-05 06:40 | ED_ITS ---
HPI - Anxiety 2 General: Chief Complaint: Anxiety Stated Complaint: ELEVATED HR Time Seen by Provider: 03/05/24 06:06 History of Present Illness: 28-year-old male presents to the emergen cy room after drinking multiple energy drinks and snorting some cocaine this morning. He was anxious about going to work and did not take his sertraline last couple days. He used several energy drinks and some cocaine. She said he snorted a small amount of cocaine. He denies any chest pain at this time. He had some palpitations and tachycardia. Denies any other symptoms. Associated symptoms: Reports palpitations; Deny chest pain, chills or fever(s) Related Data Home Medications Medication Instructions Recorded Confirmed acetaminophen 500 mg tablet 1,000 mg PO Q6H PRN Pain 07/24/21 11/30/23 ibuprofen 200 mg tablet 400 mg PO Q6H PRN Pain 07/24/21 11/30/23 Previous Rx's Medication Instructions Recorded chlorhexidine gluconate 0.12 % 15 ml buccal DAILY #120 mL 06/16/23 mouthwash ibuprofen 800 mg tablet 800 mg PO Q8H PRN pain #21 tabs 06/16/23 sertraline 100 mg tablet 100 mg PO .q am #30 tabs 11/30/23 lorazepam 1 mg tablet 1 mg PO BID PRN anxiety #60 tabs 12/01/23 Allergies Allergy/AdvReac Type Severity Reaction Status Date / Time Penicillins Allergy ALGY-Rash Verified 08/27/23 15:49 Review of Systems 2 Const: Denies: fever(s) or chills Card: Reports: palpitations; Denies: chest pain, edema, swelling of feet/ankles or dyspnea on exertion Resp: Denies: dyspnea GI: Denies: abdominal pain : Denies: dysuria, urinary frequency or urinary urgency Musc: Denies: neck pain or back pain Skin/Breast: Denies: rash Psych: Reports: anxiety PFSH ED 2 PFSH: Medical History Major depressive disorder, recurrent, in partial remission Psychiatric care Surgical History No significant past surgical history Family History Brother Depression Mother Depression Social History Smoking and tobacco/nicotine status: current every day tobacco/nicotine user cigarettes Packs smoked per day: 0.5 Years cigarettes smoked: 8 Quit status (tobacco/nicotine): has tried quititng Number of times tried to quit tobacco: 1 Second hand smoke exposure: No Physical Exam 2 Const: GENERAL APPEARANCE: cooperative ORIENTATION/CONSCIOUSNESS: Yes awake, Yes oriented to person, Yes oriented to place and Yes oriented to time HENMT: COMMON NORMALS: normocephalic, atraumatic and hearing grossly normal bilaterally HEAD & SCALP: normocephalic and atraumatic Resp: COMMON NORMALS: normal respiratory effort, No retractions, No use of accessory muscles and clear to auscultation bilaterally AUSCULTATION: clear to auscultation bilaterally Cardio: COMMON NORMALS: regular rhythm and No murmurs present (Cardio) R ATE: tachycardic RHYTHM: regular rhythm GI: COMMON NORMALS: Soft to palpation and No hepatosplenomegaly present A USCULTATION: Yes normoactive bowel sounds PALPATION: Yes Soft to palpation, No Tenderness to palpation present (GI), No Guarding due to palpation present (GI) and Yes No hepatosplenomegaly present Extremity: COMMON NORMALS: normal to inspection, capillary refill normal, no clubbing, cyanosis or edema, no calf tenderness and no pedal edema Neuro: SENSORIUM/ORIENTATION: Yes oriented to person, Yes oriented to place and Yes oriented to time Skin: COMMON NORMALS: no rashes or lesions noted GENERAL SKIN EXAM: no rashes or lesions noted Course 2 Vital Signs: Vital signs: Vital Signs Temperature 98.2 F 03/05/24 05:59 Pulse Rate 117 H 03/05/24 07:30 Respiratory Rate 20 H 03/05/24 06:34 Blood Pressure 136/88 03/05/24 07:30 Pulse Oximetry 95 03/05/24 07:30 Oxygen Delivery Me thod Room Air 03/05/24 07:30 MDM - Anxiety Medical Decision Making You were seen in the emergency room with acute anxiety. You were hyperventilating when you first arrived. Your symptoms improved after Ativan. Recommend you take your sertraline regularly as prescribed. Use Ativan as needed. Avoid stimulants. Lab Data I reviewed the patient's lab results. 03/05/24 06:15 03/05/24 06:15 Radiology Impressions Chest X-Ray 03/05/24 06:07 IMPRESSION: No acute findings. Laboratory Results WBC 5.98 10^3/uL (3.29-11.43) 03/05/24 06:15 RBC 5.35 10^6/uL (3.85-5.65) 03/05/24 06:15 Hgb 17.30 g/dL (11.27-16.99) H 03/05/24 06:15 Hct 48.8 % (37-53) 03/05/24 06:15 MCV 91.2 fl (82-101) 03/05/24 06:15 MCH 32.3 pg (27-33) 03/05/24 06:15 MCHC 35.5 g/dL (30-55) 03/05/24 06:15 RDW 12.1 % (12.1-15.1) 03/05/24 06:15 Plt Count 325 10^3/cmm (157-399) 03/05/24 06:15 MPV 8.8 fL (7.4-10.4) 03/05/24 06:15 Neut % (Auto) 68.6 % 03/05/24 06:15 Lymph % (Auto) 19.9 % 03/05/24 06:15 [place] % (Auto) 9.4 % 03/05/24 06:15 Eos % (Auto) 1.3 % 03/05/24 06:15 Baso % (Auto) 0.3 % 03/05/24 06:15 Neut # (Auto) 4.10 10^3/uL (1.8-7.7) 03/05/24 06:15 Lymph # (Auto) 1.2 10^3/uL (0.8-4.8) 03/05/24 06:15 [place] # (Auto) 0.6 10^3/uL (0.2-0.9) 03/05/24 06:15 Eos # (Auto) 0.1 10^3/uL (0.0-0.8) 03/05/24 06:15 Baso # (Auto) 0.0 10^3/uL (0.0-0.1) 03/05/24 06:15 Nucleated RBC % (auto) 0 % 03/05/24 06:15 Nucleated RBCs # 0.0 /100WBC 03/05/24 06:15 Specimen Type Arterial 03/05/24 06:12 Sample Site Radial, left 03/05/24 06:12 ABG pH 7.54 (7.35-7.45) H 03/05/24 06:12 ABG pCO2 25.9 mmHg (35-45) L 03/05/24 06:12 ABG pO2 126.0 mmHg (80.0-100.0) H 03/05/24 06:12 ABG PO2/FiO2 Ratio 600 03/05/24 06:12 ABG HCO3 22.3 mmol/L (22-26) 03/05/24 06:12 ABG O2 Saturation > 99.1 03/05/24 06:12 ABG Base Excess 1.6 mmol/L (-2.0-2.0) 03/05/24 06:12 Trey Test Pos 03/05/24 06:12 A-a O2 Gradient Not Reportable 03/05/24 06:12 Hematocrit 51.8 % (42-52) 03/05/24 06:12 Hgb O2 Saturation 96.9 % (95-100) 03/05/24 06:12 Carboxyhemoglobin 2.6 %THgb (0.4-20.1) 03/05/24 06:12 Methemoglobin 0.3 % (0.4-1.5) L 03/05/24 06:12 Total Hemoglobin 16.9 g/dL (14-18) 03/05/24 06:12 Sodium 138.0 mmol/L (131-143) 03/05/24 06:12 Potassium 3.4 mmol/L (3.5-5.0) L 03/05/24 06:12 Glucose 150.0 mg/dL (70-115) H 03/05/24 06:12 Ionized Calcium 1.2 mmol/L (1.1-1.4) 03/05/24 06:12 O2 Delivery Device Room air 03/05/24 06:12 FiO2 21.0 % 03/05/24 06:12 Cellular Tower Climber ID Ed 03/05/24 06:12 Sodium 135 mmol/L (136-145) L 03/05/24 06:15 Potassium 3.9 mmol/L (3.5-5.1) 03/05/24 06:15 Chloride 97 mmol/L (98-107) L 03/05/24 06:15 Carbon Dioxide 20 mmol/L (22-29) L 03/05/24 06:15 Anion Gap 21.9 (5-19) H 03/05/24 06:15 BUN 12 mg/dL (6-20) 03/05/24 06:15 Creatinine 0.8 mg/dL (0.7-1.2) 03/05/24 06:15 GFR Calculation 116.9 mL/min (90-130) 03/05/24 06:15 Glucose 155 mg/dL (65-115) H 03/05/24 06:15 Calculated Osmolality 283 mOsm/kg (285-295) L 03/05/24 06:15 Calcium 9.6 mg/dL (8.5-10.5) 03/05/24 06:15 Total Bilirubin 0.4 mg/dL (0.15-1.2) 03/05/24 06:15 AST 28 U/L (0-40) 03/05/24 06:15 ALT 19 U/L (0-41) 03/05/24 06:15 Alkaline Phosphatase 101 U/L (40-130) 03/05/24 06:15 Troponin T Baseline < 6 ng/L (0-15) 03/05/24 06:15 Total Protein 8.0 g/dL (6.6-8.7) 03/05/24 06:15 Albumin 5.1 g/dL (3.5-5.2) 03/05/24 06:15 Globulin 2.9 g/dL (1.3-4.6) 03/05/24 06:15 All radiology interpretation(s) finalized by discharge Discharge Plan Discharge Patient Disposition: Home Clinical Impression: Acute anxiety, Hyperventilation Condition: Stable Prescriptions: No Action sertraline 100 mg tablet 100 mg PO .q am Qty: 30 2RF Rx Instructions: Take one tablet by mouth every morning lorazepam 1 mg tablet 1 mg PO BID PRN (Reason: anxiety) Qty: 60 2RF Rx Instructions: Take one tablet by mouth twice a day, if needed for anxiety acetaminophen 500 mg Tablet 1,000 mg PO Q6H PRN (Reason: Pain) ibuprofen 200 mg Tablet 400 mg PO Q6H PRN (Reason: Pain) ibuprofen 800 mg tablet 800 mg PO Q8H PRN (Reason: pain) Qty: 21 0RF chlorhexidine gluconate 0.12 % mouthwash 15 ml buccal DAILY Qty: 120 0RF Discharge Orders: Discharge ED (Routine); Ordered 03/05/24 Ordered By: Ozzy Wang Discharge Diet: Usual diet Discharge Activity: Resume usual activity Patient Instructions: Opioid Safety, Pain Management Activity Restrictions/Additional Instructions: Thank you for choosing [facility] for your healthcare needs today. It is very important that you follow up as instructed or that you return to the Emergency Department should you have concerns or if your condition changes or worsens in any way. You are seen today after a episode of anxiety. Recommend you avoid energy drinks and other stimulants. You were given a dose of the sertraline your regular sertraline this morning recommend you continue that dose regularly use other medications as previously prescribed. Follow-up with your primary care doctor. Coding Level of Care Code ED Title Inspector for Espinoza Cabral
[2024-03-05 07:09] LABS: Alanine Aminotransferase 19 U/L (0-41); Albumin Level 5.1 g/dL (3.5-5.2); Alkaline Phosphatase 101 U/L (40-130); Blood Urea Nitrogen 12 mg/dL (6-20); Calcium 9.6 mg/dL (8.5-10.5); Carbon Dioxide 20 mmol/L (22-29); Chloride 97 mmol/L (98-107); Creatinine Clr Calc Pharmacy 134.2295; Globulin 2.9 g/dL (1.3-4.6); Glomerular Filtration Rate 116.9 mL/min (90-130); Glucose 155 mg/dL (65-115); Osmolality Calculated 283 mOsm/kg (285-295); Sodium 135 mmol/L (136-145); Total Bilirubin 0.4 mg/dL (0.15-1.2)
[2024-03-05 07:10] LABS: Troponin(5th) Baseline < 6 ng/L (0-15)
[2024-03-05 07:11] LABS: Anion Gap 21.9 (5-19); Potassium 3.9 mmol/L (3.5-5.1)
[2024-03-05 07:12] LABS: Aspartate Amino Transferase 28 U/L (0-40)
[2024-03-05 07:30] VITALS: BP 136/88; PULSE 117; O2SAT 95
[2024-03-05 08:02] VITALS: BP 139/94; PULSE 116; RESP 16; O2SAT 97
== END 2024-03-05 08:04 | disposition home or self-care (01) ==
PROVIDERS: Emergency Provider Family Medicine
DX: F41.9 Anxiety disorder, unspecified (principal); R06.4 Hyperventilation; F17.210 Nicotine dependence, cigarettes, uncomplicated
CPT/HCPCS: 36600; 71045; 80051; 80053; 82330; 82805; 84484; 85025; 93005; 96374; 99285; J2060